=== PATIENT | female | born 1935 | race Caucasian/White ===

== ENCOUNTER 2016-09-14 15:28 | Emergency (ER) | payer OTHER ==
[~2016-09-14] VITALS: Ht 165.1 cm; Wt 66.1 kg
[~2016-09-14 15:28] MED LIST: ADULT LOW DOSE81 M1 PO; ADVAIR 250/501 DISK IH; ALLOPURINOL300 MG; ASPIR 8181 M1 PO; BENICAR20 MG; BENICAR20 MG PO; DIGOXIN250 MCG PO; DUONEB 2.5-0.5 M3 ML IH; FISH OIL 1,001000 M1 PO; FLONASE16 G1 BOTH NARES; FLOVENT 22120 INHALA; FUROSEMIDE20 MG PO; GLUCOPHAGE500 MG PO; IRON325 M1 PO; JANUMET 50/11 TABLET; JANUMET 50/51 TABLET PO; K-DUR10 MEQ PO; LOPRESSOR25 MG PO; METOPROLOL SUCC25 MG PO; NEXIUM40 MG PO; PRAVACHOL40 MG; PREDNISONE20 MG PO; PRESERVISION A1 EAC2 PO; PROTONIX40 MG PO; SYNTHROID112 MCG; SYNTHROID112 MCG PO; TOPROL XL25 MG PO; TRICOR48 MG; XARELTO20 MG PO; ZOLOFT100 M1 PO; ZOLOFT100 MG PO; ZYLOPRIM300 MG PO
[2016-09-14 16:01] LABS: ADD MIUA? YES; BILIRUBIN NEGATIVE; BLOOD LARGE; COLOR YELLOW ((YELLOW)); GLUCOSE (STRIP) NEGATIVE; KETONES NEGATIVE; LEUKOCYTES LARGE; NITRITE POSITIVE; PROTEIN (STRIP) 100; UROBILINOGEN 0.2 MG/DL (0.2-1.0)
[2016-09-14 16:07] LABS: HEMATOCRIT 34.4 % (36.0-46.0); MCH 21.7 PG (29.0-34.0); MCHC 28.2 G/DL (30.0-36.0); MCV 76.8 FL (83-99); MEAN PLAT.VOLUME 10.9 uM^3 (9.5-12.4); PLATELET COUNT 219 K/uL (156-360); RBC DIS.WIDTH-CV 18.1 % (11.8-14.6); RBC DIS.WIDTH-SD 49.6 % (39-53); RED BLOOD COUNT 4.48 M/uL (3.80-5.20)
[2016-09-14 16:11] LABS: BACTERIA 3+ /HPF; EPITHELIAL CELLS 1+ /HPF; MUCUS NONE SEEN /LPF; RED BLOOD CELLS TNTC /HPF (0-5); UCUL ADDED? YES; WHITE BLOOD CELLS TNTC /HPF (0-5)
[2016-09-14 16:21] LABS: CHLORIDE 106 mEq/L (99-109); POTASSIUM 4.4 mEq/L (3.7-5.4); SODIUM 140 mEq/L (136-147)
[2016-09-14 16:23] LABS: GLUCOSE 118 mg/dL (70-99); INTER. NORMALIZED RATIO 1.3; PROTHROMBIN TIME 13.7 (9.2-11.2); PTT 31.7 (25-32)
[2016-09-14 16:24] LABS: ANION GAP 10 MEQ/L (2-14)
[2016-09-14 16:26] LABS: GFR ESTIMATE (CALCULATED) > 59 mL/min/
[2016-09-14 16:27] LABS: UREA NITROGEN (BUN) 16 mg/dL (9-23)
[2016-09-14] MEDS ORDERED: ZOFRAN4 MG PO (16:38)
[2016-09-14] MEDS ORDERED: BACTRIM,SEPT1 TABLET PO (16:38)
[2016-09-14 17:47] VITALS: BP 153/86
== END 2016-09-14 18:20 | disposition home or self-care (01) ==
LOC: EME 15:28
PROVIDERS: Emergency Medicine
DX: N12 Tubulo-interstitial nephritis, not specified as acute or chronic (principal); I48.91 Unspecified atrial fibrillation; Z91.81 History of falling; J44.9 Chronic obstructive pulmonary disease, unspecified; J45.909 Unspecified asthma, uncomplicated; I10 Essential (primary) hypertension; E03.9 Hypothyroidism, unspecified; E11.9 Type 2 diabetes mellitus without complications; Z79.84 Long term (current) use of oral hypoglycemic drugs; Z79.82 Long term (current) use of aspirin; Z90.49 Acquired absence of other specified parts of digestive tract; Z90.10 Acquired absence of unspecified breast and nipple; Z87.891 Personal history of nicotine dependence
CPT/HCPCS: 80048; 81003; 85027; 85610; 85730; 87077; 87086 GA; 87186; 93005; 99281; 99284; J0696; J7030; J7050

== ENCOUNTER 2016-10-13 16:18 | Inpatient (IN) | payer OTHER ==
[~2016-10-13] VITALS: Ht 165.1 cm; Wt 63.5 kg
[~2016-10-13 16:18] MED LIST changes: +BACTRIM,SEPT1 TABLET PO; +ZOFRAN4 MG PO
[2016-10-13 18:06] LABS: INTER. NORMALIZED RATIO 1.8; PROTHROMBIN TIME 18.2 (9.2-11.2); PTT 32.7 (25-32)
[2016-10-13 18:09] LABS: CHLORIDE 104 mEq/L (99-109); POTASSIUM 4.4 mEq/L (3.7-5.4); SODIUM 137 mEq/L (136-147)
[2016-10-13 18:11] LABS: GLUCOSE 125 mg/dL (70-99)
[2016-10-13 18:12] LABS: ANION GAP 9 MEQ/L (2-14); TROP-I INTERPRETATION NEGATIVE; TROPONIN-I 0.02 ng/mL (0.0-0.30)
[2016-10-13 18:13] LABS: EOSINOPHIL (%) 0.5 % (0-5); HEMATOCRIT 28.1 % (36.0-46.0); IMMATURE GRANULOCYTE (%) 0.9 % (0.0-0.7); IMMATURE GRANULOCYTE COUNT 0.1 K/uL; INSTRUMENT ABS NEUTROPHIL CT 5.7 K/uL; LYMPHOCYTE COUNT 1.5 K/uL (1.0-2.8); MCH 20.9 PG (29.0-34.0); MCHC 27.8 G/DL (30.0-36.0); MCV 75.1 FL (83-99); MEAN PLAT.VOLUME 11.5 uM^3 (9.5-12.4); MONOCYTE (%) 8.3 % (3-12); MONOCYTE COUNT 0.7 K/uL (0-0.8); NEUTROPHIL COUNT 5.7 K/uL (1.8-6.4); PLATELET COUNT 156 K/uL (156-360); RBC DIS.WIDTH-CV 19.5 % (11.8-14.6); RED BLOOD COUNT 3.74 M/uL (3.80-5.20); WHITE BLOOD COUNT 8.1 K/uL (4.1-10.2)
[2016-10-13 18:13] LABS: TOTAL BILIRUBIN 0.9 mg/dL (0.0-1.0)
[2016-10-13 18:14] LABS: ALKALINE PHOSPHATASE 71 IU/L (3-129); GFR ESTIMATE (CALCULATED) > 59 mL/min/
[2016-10-13 18:16] LABS: UREA NITROGEN (BUN) 13 mg/dL (9-23)
[2016-10-13 18:18] LABS: LIPASE 34 U/L (1.0-51.0)
[2016-10-13 18:24] LABS: DIGOXIN < 0.3 ng/mL (0.8-2.0)
[2016-10-13] MEDS ORDERED: TOPROL XL50 MG PO (21:17)
[2016-10-13] MEDS ORDERED: JANUMET XR 1001 EACH PO (21:18)
[2016-10-13] MEDS ORDERED: AEROBIKA1 EACH MC (21:19)
[2016-10-13 21:35] LABS: ADD MIUA? NO; BILIRUBIN NEGATIVE; BLOOD NEGATIVE; COLOR STRAW ((YELLOW)); GLUCOSE (STRIP) NEGATIVE; KETONES NEGATIVE; LEUKOCYTES NEGATIVE; NITRITE NEGATIVE; PROTEIN (STRIP) NEGATIVE; SPECIFIC GRAVITY 1.005 (1.000-1.030); UCUL ADDED? NO; UROBILINOGEN 0.2 MG/DL (0.2-1.0)
[2016-10-13 23:29] VITALS: BP 110/86
[2016-10-13 23:42] VITALS: BP 107/82
[2016-10-14] VITALS (9 sets, daily range): BP systolic 104–150; BP diastolic 62–90
[2016-10-14 09:10] LABS: HEMATOCRIT 32.2 % (36.0-46.0); MCH 22.9 PG (29.0-34.0); MCHC 29.2 G/DL (30.0-36.0); MCV 78.3 FL (83-99); MEAN PLAT.VOLUME 11.8 uM^3 (9.5-12.4); PLATELET COUNT 150 K/uL (156-360); RBC DIS.WIDTH-CV 20.5 % (11.8-14.6); RBC DIS.WIDTH-SD 56.8 % (39-53); RED BLOOD COUNT 4.11 M/uL (3.80-5.20); WHITE BLOOD COUNT 7.8 K/uL (4.1-10.2)
[2016-10-14 09:36] LABS: ANION GAP 8 MEQ/L (2-14); CHLORIDE 101 MEQ/L (99-109); GFR ESTIMATE (CALCULATED) 57 mL/min/; GLUCOSE 129 mg/dL (70-99); POTASSIUM 3.8 MEQ/L (3.7-5.4); SAMPLE HEMOLYSIS CHECK 0; SAMPLE ICTERIC CHECK 0; SAMPLE LIPEMIA CHECK 0; SODIUM 139 MEQ/L (136-147); UREA NITROGEN (BUN) 16 mg/dL (9-23)
[2016-10-15 00:04] VITALS: BP 148/70
[2016-10-15 04:06] VITALS: BP 152/82
[2016-10-15 07:40] VITALS: BP 134/65
[2016-10-15 10:34] LABS: HEMATOCRIT 36.2 % (36.0-46.0); MCH 22.8 PG (29.0-34.0); MCV 78.7 FL (83-99); MEAN PLAT.VOLUME 12.6 uM^3 (9.5-12.4); PLATELET COUNT 181 K/uL (156-360); RBC DIS.WIDTH-CV 20.9 % (11.8-14.6); RBC DIS.WIDTH-SD 57.9 % (39-53); WHITE BLOOD COUNT 8.2 K/uL (4.1-10.2)
[2016-10-15 11:04] LABS: ALKALINE PHOSPHATASE 69 IU/L (3-129); ANION GAP 10 MEQ/L (2-14); CHLORIDE 100 MEQ/L (99-109); GFR ESTIMATE (CALCULATED) > 59 mL/min/; GLUCOSE 268 mg/dL (70-99); POTASSIUM 3.6 MEQ/L (3.7-5.4); SAMPLE HEMOLYSIS CHECK 0; SAMPLE ICTERIC CHECK 0; SAMPLE LIPEMIA CHECK 0; SODIUM 138 MEQ/L (136-147); UREA NITROGEN (BUN) 20 mg/dL (9-23)
[2016-10-15 11:46] VITALS: BP 155/60
[2016-10-15 12:07] LABS: POINT-OF-CARE METER ID UU13113698
[2016-10-15 15:22] VITALS: BP 111/57
[2016-10-15 15:46] LABS: POINT-OF-CARE METER ID UU13113698
[2016-10-15 20:31] LABS: POINT-OF-CARE METER ID UU13113698
[2016-10-15 21:25] VITALS: BP 116/62
[2016-10-16] VITALS (7 sets, daily range): BP systolic 110–156; BP diastolic 57–92
[2016-10-16 05:56] LABS: EOSINOPHIL (%) 0.2 % (0-5); HEMATOCRIT 36.2 % (36.0-46.0); IMMATURE GRANULOCYTE (%) 0.8 % (0.0-0.7); IMMATURE GRANULOCYTE COUNT 0.1 K/uL; INSTRUMENT ABS NEUTROPHIL CT 10.9 K/uL; LYMPHOCYTE COUNT 2.2 K/uL (1.0-2.8); MCH 22.4 PG (29.0-34.0); MCHC 28.7 G/DL (30.0-36.0); MEAN PLAT.VOLUME 11.6 uM^3 (9.5-12.4); MONOCYTE (%) 6.2 % (3-12); MONOCYTE COUNT 0.9 K/uL (0-0.8); NEUTROPHIL (%) 77.3 % (45-76); NEUTROPHIL COUNT 10.9 K/uL (1.8-6.4); PLATELET COUNT 168 K/uL (156-360); RBC DIS.WIDTH-CV 21.2 % (11.8-14.6); RBC DIS.WIDTH-SD 58.5 % (39-53); RED BLOOD COUNT 4.64 M/uL (3.80-5.20); WHITE BLOOD COUNT 14.1 K/uL (4.1-10.2)
[2016-10-16 06:42] LABS: ANION GAP 12 MEQ/L (2-14); CHLORIDE 98 MEQ/L (99-109); GFR ESTIMATE (CALCULATED) 57 mL/min/; GLUCOSE 166 mg/dL (70-99); POTASSIUM 3.4 MEQ/L (3.7-5.4); SAMPLE HEMOLYSIS CHECK 0; SAMPLE ICTERIC CHECK 0; SAMPLE LIPEMIA CHECK 0; SODIUM 138 MEQ/L (136-147); UREA NITROGEN (BUN) 30 mg/dL (9-23)
[2016-10-16 07:46] LABS: POINT-OF-CARE METER ID UU13113781
[2016-10-16 11:30] LABS: POINT-OF-CARE METER ID UU14174216
[2016-10-16 16:46] LABS: POINT-OF-CARE METER ID UU14174216
[2016-10-16 21:39] LABS: POINT-OF-CARE METER ID UU14174216
[2016-10-17 03:29] VITALS: BP 140/85
[2016-10-17 06:25] LABS: EOSINOPHIL (%) 0.2 % (0-5); HEMATOCRIT 36.5 % (36.0-46.0); IMMATURE GRANULOCYTE (%) 0.7 % (0.0-0.7); IMMATURE GRANULOCYTE COUNT 0.1 K/uL; INSTRUMENT ABS NEUTROPHIL CT 7.9 K/uL; LYMPHOCYTE COUNT 2.1 K/uL (1.0-2.8); MCH 22.7 PG (29.0-34.0); MCHC 29.3 G/DL (30.0-36.0); MCV 77.5 FL (83-99); MEAN PLAT.VOLUME 12.4 uM^3 (9.5-12.4); MONOCYTE (%) 7.7 % (3-12); MONOCYTE COUNT 0.8 K/uL (0-0.8); NEUTROPHIL (%) 72.3 % (45-76); NEUTROPHIL COUNT 7.9 K/uL (1.8-6.4); PLATELET COUNT 178 K/uL (156-360); RBC DIS.WIDTH-CV 21.2 % (11.8-14.6); RBC DIS.WIDTH-SD 58.6 % (39-53); RED BLOOD COUNT 4.71 M/uL (3.80-5.20)
[2016-10-17 07:00] LABS: ALKALINE PHOSPHATASE 57 IU/L (3-129); ANION GAP 12 MEQ/L (2-14); CHLORIDE 99 MEQ/L (99-109); GFR ESTIMATE (CALCULATED) > 59 mL/min/; POTASSIUM 3.6 MEQ/L (3.7-5.4); SAMPLE HEMOLYSIS CHECK 1; SAMPLE ICTERIC CHECK 0; SAMPLE LIPEMIA CHECK 0; SODIUM 140 MEQ/L (136-147); UREA NITROGEN (BUN) 30 mg/dL (9-23)
[2016-10-17 07:02] LABS: GLUCOSE 109 mg/dL (70-99); TOTAL BILIRUBIN 0.7 MG/DL (0.0-1.0)
[2016-10-17 07:15] VITALS: BP 148/69
[2016-10-17 07:57] LABS: POINT-OF-CARE METER ID UU13113698
[2016-10-17 11:30] VITALS: BP 135/77
[2016-10-17 11:40] LABS: POINT-OF-CARE METER ID UU13113698
[2016-10-17 16:07] VITALS: BP 177/76
[2016-10-17 16:30] LABS: POINT-OF-CARE METER ID UU13113698
[2016-10-17 19:12] VITALS: BP 121/58
[2016-10-17 20:41] LABS: POINT-OF-CARE METER ID UU14174216
[2016-10-18 00:01] VITALS: BP 120/58
[2016-10-18 03:44] VITALS: BP 132/58
[2016-10-18 07:11] VITALS: BP 143/69
[2016-10-18 11:39] VITALS: BP 111/62
[2016-10-18] MEDS ORDERED: ADVAIR HFA120 INHALA IH (11:41)
[2016-10-18] MEDS ORDERED: SPIRIVA RESPIMAT4 GM IH (11:41)
[2016-10-18] MEDS ORDERED: PANTOPRAZOLE SO40 MG PO (11:45)
[2016-10-18 16:16] VITALS: BP 121/60
== END 2016-10-18 17:19 | disposition home health service (06) | DRG 378 ==
LOC: EME 16:18 → 4EAST 21:43 → EDOF 21:43 → 4EAST 10-14 00:07
PROVIDERS: Emergency Medicine; Hospitalist; Physician Assistant
PROC: 30233N1 Transfusion of Nonautologous Red Blood Cells into Peripheral Vein, Percutaneous Approach (ICD-10-PCS; principal; 2016-10-13)
PROC: 0DB68ZX Excision of Stomach, Via Natural or Artificial Opening Endoscopic, Diagnostic (ICD-10-PCS; 2016-10-17)
DX: K92.2 Gastrointestinal hemorrhage, unspecified (principal); J96.11 Chronic respiratory failure with hypoxia; I50.32 Chronic diastolic (congestive) heart failure; J90 Pleural effusion, not elsewhere classified; I31.3 Pericardial effusion (noninflammatory); R18.8 Other ascites; K21.9 Gastro-esophageal reflux disease without esophagitis; J44.9 Chronic obstructive pulmonary disease, unspecified; E03.9 Hypothyroidism, unspecified; E87.6 Hypokalemia; I48.0 Paroxysmal atrial fibrillation; I48.2 Chronic atrial fibrillation; K59.00 Constipation, unspecified; K29.70 Gastritis, unspecified, without bleeding; K25.7 Chronic gastric ulcer without hemorrhage or perforation; H91.90 Unspecified hearing loss, unspecified ear; I11.0 Hypertensive heart disease with heart failure; I49.3 Ventricular premature depolarization; R29.6 Repeated falls; D53.9 Nutritional anemia, unspecified; I34.0 Nonrheumatic mitral (valve) insufficiency; E78.5 Hyperlipidemia, unspecified; E78.00 Pure hypercholesterolemia, unspecified; E11.9 Type 2 diabetes mellitus without complications; I27.2 Other secondary pulmonary hypertension; I36.1 Nonrheumatic tricuspid (valve) insufficiency; M19.90 Unspecified osteoarthritis, unspecified site; Z99.81 Dependence on supplemental oxygen; Z79.84 Long term (current) use of oral hypoglycemic drugs; Z85.3 Personal history of malignant neoplasm of breast; Z87.891 Personal history of nicotine dependence; Z79.01 Long term (current) use of anticoagulants; Z88.5 Allergy status to narcotic agent; Z88.0 Allergy status to penicillin; Z88.2 Allergy status to sulfonamides; Z82.3 Family history of stroke
CPT/HCPCS: 71010; 73502; 74176; 80048; 80053; 80162; 81003; 82948; 83690; 83880; 84484; 85025; 85027; 85610; 85730; 86900; 86901; 86920; 88305; 88342 TC; 93005; 94010; 94640; 94640 76; 94799; 99202; 99281; 99285; C9113; J1815; J1940; J2920; P9016

== ENCOUNTER 2017-05-22 18:53 | Inpatient (IN) | payer OTHER ==
[~2017-05-22] VITALS: Ht 167.6 cm; Wt 69.5 kg
[~2017-05-22 18:53] MED LIST changes: +ADVAIR HFA120 INHALA IH; +AEROBIKA1 EACH MC; +JANUMET XR 1001 EACH PO; +LOPRESSOR50 MG PO; +PANTOPRAZOLE SO40 MG PO; +SPIRIVA RESPIMAT4 GM IH
[2017-05-22 19:41] LABS: HEMATOCRIT 39.1 % (36.0-46.0); MCH 28.1 PG (29.0-34.0); MCHC 30.7 G/DL (30.0-36.0); MCV 91.6 FL (83-99); PLATELET COUNT 203 K/uL (156-360); RBC DIS.WIDTH-CV 17.1 % (11.8-14.6); RBC DIS.WIDTH-SD 55.2 % (39-53); RED BLOOD COUNT 4.27 M/uL (3.80-5.20); WHITE BLOOD COUNT 11.6 K/uL (4.1-10.2)
[2017-05-22 19:53] LABS: ALBUMIN 4.1 g/dL (3.2-4.8); CHLORIDE 106 mEq/L (99-109); POTASSIUM 4.9 mEq/L (3.7-5.4)
[2017-05-22 19:54] LABS: SODIUM 136 mEq/L (136-147)
[2017-05-22 19:56] LABS: GLUCOSE 161 mg/dL (70-99)
[2017-05-22 19:58] LABS: TOTAL BILIRUBIN 0.9 mg/dL (0.0-1.0)
[2017-05-22 19:59] LABS: ALKALINE PHOSPHATASE 65 IU/L (3-129); CREATININE 1.1 mg/dL (0.6-1.3); GFR ESTIMATE (CALCULATED) 51 mL/min/
[2017-05-22 20:01] LABS: AST (GOT) 24 IU/L (2-34); UREA NITROGEN (BUN) 22 mg/dL (9-23)
[2017-05-22 20:02] LABS: ALT (GPT) 19 IU/L (3-49)
[2017-05-22 20:03] LABS: LIPASE 36 U/L (1.0-51.0)
[2017-05-22] MEDS ORDERED: DIGOX250 MCG PO (22:03)
[2017-05-22] MEDS ORDERED: FUROSEMIDE20 MG PO (22:04)
[2017-05-22] MEDS ORDERED: K-DUR10 MEQ PO (22:04)
[2017-05-22] MEDS ORDERED: PROTONIX40 MG PO (22:05)
[2017-05-22 22:23] LABS: APPEARANCE CLEAR ((CLEAR)); BILIRUBIN NEGATIVE; BLOOD NEGATIVE; COLOR YELLOW ((YELLOW)); GLUCOSE (STRIP) NEGATIVE; KETONES NEGATIVE; LEUKOCYTES MODERATE; NITRITE NEGATIVE; PROTEIN (STRIP) 100; SPECIFIC GRAVITY 1.042 (1.000-1.030); UROBILINOGEN 0.2 MG/DL (0.2-1.0)
[2017-05-22 22:32] LABS: BACTERIA 2+ /HPF; EPITHELIAL CELLS RARE /HPF; HYALINE CASTS 0-5 /LPF; MUCUS TRACE /LPF; RED BLOOD CELLS 0-5 /HPF (0-5); UCUL ADDED? YES; WHITE BLOOD CELLS 20-30 /HPF (0-5)
[2017-05-23 03:02] VITALS: BP 110/70
[2017-05-23 04:19] VITALS: BP 168/73
[2017-05-23 05:26] LABS: TROP-I INTERPRETATION NEGATIVE; TROPONIN-I < 0.01 ng/mL (0.0-0.30)
[2017-05-23 06:10] LABS: HDL CHOLESTEROL 21 MG/DL (Desirable>=50); LDL CHOLESTEROL 61 mg/dL (Desirable<100); MAGNESIUM 1.7 mg/dl (1.3-2.7); NON-HDL CHOLESTEROL 90 mg/dL (Desirable<160); TOTAL CHOLESTEROL 111 mg/dL (Desirable<200); TRIGLYCERIDES 143 MG/DL (Normal: <150)
[2017-05-23 07:30] VITALS: BP 118/58
[2017-05-23 10:39] LABS: THYROTROPIN (TSH) 13.3 MIU/L (0.4-5.5)
[2017-05-23 11:26] VITALS: BP 135/71
[2017-05-23 12:42] LABS: TROP-I INTERPRETATION NEGATIVE; TROPONIN-I 0.02 ng/mL (0.0-0.30)
[2017-05-23 15:32] VITALS: BP 141/69
[2017-05-23 18:29] LABS: TROP-I INTERPRETATION NEGATIVE; TROPONIN-I 0.02 ng/mL (0.0-0.30)
[2017-05-23 20:16] VITALS: BP 124/66
[2017-05-24 01:00] VITALS: BP 143/65
[2017-05-24 01:11] VITALS: BP 136/60
[2017-05-24 04:48] VITALS: BP 122/61
[2017-05-24 05:36] LABS: HEMATOCRIT 34.7 % (36.0-46.0); HEMOGLOBIN 10.5 G/DL (11.9-15.5); MCH 28.1 PG (29.0-34.0); MCHC 30.3 G/DL (30.0-36.0); MCV 92.8 FL (83-99); PLATELET COUNT 165 K/uL (156-360); RBC DIS.WIDTH-CV 17.1 % (11.8-14.6); RBC DIS.WIDTH-SD 56.4 % (39-53); RED BLOOD COUNT 3.74 M/uL (3.80-5.20)
[2017-05-24 06:20] LABS: ALBUMIN 3.7 G/DL (3.2-4.8); ALKALINE PHOSPHATASE 55 IU/L (3-129); ALT (GPT) 13 IU/L (3-49); AST (GOT) 18 IU/L (2-34); CHLORIDE 103 MEQ/L (99-109); GFR ESTIMATE (CALCULATED) 57 mL/min/; MAGNESIUM 1.6 mg/dl (1.3-2.7); POTASSIUM 4.1 MEQ/L (3.7-5.4); SODIUM 139 MEQ/L (136-147); TOTAL BILIRUBIN 0.8 MG/DL (0.0-1.0); TOTAL PROTEIN 6.8 G/DL (6.4-8.3); UREA NITROGEN (BUN) 18 mg/dL (9-23)
[2017-05-24 06:37] LABS: GLUCOSE 118 mg/dL (70-99)
[2017-05-24 08:15] VITALS: BP 134/58
[2017-05-24 12:05] VITALS: BP 117/72
[2017-05-24 20:00] VITALS: BP 154/110
[2017-05-25 00:30] VITALS: BP 101/65
[2017-05-25 07:28] VITALS: BP 189/73
[2017-05-25 08:27] LABS: HEMATOCRIT 33.8 % (36.0-46.0); HEMOGLOBIN 10.5 G/DL (11.9-15.5); MCH 28.8 PG (29.0-34.0); MCHC 31.1 G/DL (30.0-36.0); MCV 92.9 FL (83-99); PLATELET COUNT 146 K/uL (156-360); RBC DIS.WIDTH-CV 17.2 % (11.8-14.6); RBC DIS.WIDTH-SD 56.6 % (39-53); RED BLOOD COUNT 3.64 M/uL (3.80-5.20); WHITE BLOOD COUNT 5.2 K/uL (4.1-10.2)
[2017-05-25 08:50] LABS: CHLORIDE 106 MEQ/L (99-109); CREATINE KINASE 71 IU/L (1-294); CREATININE 0.9 MG/DL (0.6-1.3); GFR ESTIMATE (CALCULATED) > 59 mL/min/; GLUCOSE 125 mg/dL (70-99); MAGNESIUM 1.7 mg/dl (1.3-2.7); POTASSIUM 4.1 MEQ/L (3.7-5.4); SODIUM 144 MEQ/L (136-147); UREA NITROGEN (BUN) 13 mg/dL (9-23)
[2017-05-25 12:03] VITALS: BP 136/78
[2017-05-25 16:00] VITALS: BP 126/60
[2017-05-25 19:00] VITALS: BP 138/87
[2017-05-25 23:45] VITALS: BP 131/75
[2017-05-26 04:43] LABS: HEMATOCRIT 35.6 % (36.0-46.0); HEMOGLOBIN 11.3 G/DL (11.9-15.5); MCHC 31.7 G/DL (30.0-36.0); MCV 91.5 FL (83-99); PLATELET COUNT 152 K/uL (156-360); RBC DIS.WIDTH-CV 16.7 % (11.8-14.6); RBC DIS.WIDTH-SD 55.3 % (39-53); RED BLOOD COUNT 3.89 M/uL (3.80-5.20); WHITE BLOOD COUNT 6.5 K/uL (4.1-10.2)
[2017-05-26 04:49] VITALS: BP 160/76
[2017-05-26 04:57] LABS: CHLORIDE 102 mEq/L (99-109); SODIUM 140 mEq/L (136-147)
[2017-05-26 04:58] LABS: MAGNESIUM 1.4 mg/dL (1.3-2.7)
[2017-05-26 04:59] LABS: GLUCOSE 124 mg/dL (70-99)
[2017-05-26 05:03] LABS: CREATININE 0.8 mg/dL (0.6-1.3); GFR ESTIMATE (CALCULATED) > 59 mL/min/
[2017-05-26 05:04] LABS: UREA NITROGEN (BUN) 14 mg/dL (9-23)
[2017-05-26 09:06] VITALS: BP 140/79
[2017-05-26 11:41] VITALS: BP 126/59
[2017-05-26] MEDS ORDERED: SERTRALINE HCL100 MG PO (15:07)
[2017-05-26] MEDS ORDERED: DIGOXIN250 MCG PO (15:07)
[2017-05-26] MEDS ORDERED: SPIRONOLACTONE25 MG PO (15:07)
[2017-05-26] MEDS ORDERED: PANTOPRAZOLE SO40 MG PO (15:07)
[2017-05-26] MEDS ORDERED: FUROSEMIDE20 MG PO (15:07)
[2017-05-26] MEDS ORDERED: LEVOTHYROXINE150 MCG PO (15:07)
[2017-05-26] MEDS ORDERED: LOPRESSOR50 MG PO (15:07)
[2017-05-26 19:36] VITALS: BP 165/96
[2017-05-26 23:02] VITALS: BP 147/69
[2017-05-27 03:56] VITALS: BP 141/75
[2017-05-27 09:32] VITALS: BP 158/82
[2017-05-27 12:00] VITALS: BP 121/60
[2017-05-27 15:34] VITALS: BP 135/63
== END 2017-05-27 18:52 | disposition home health service (06) | DRG 871 ==
LOC: EME → EDBD 18:53 → EME 18:53 → 4EAST 05-23 00:20 → EDOF 05-23 00:20 → ENRESERV 05-23 00:22 → EDOF 05-23 02:03 → ENRESERV 05-23 02:07 → 4EAST 05-23 02:48 → ENRESERV 05-24 14:06 → CANRESERV 05-24 14:06 → ENPENDDIS 05-27 → 4EAST 05-27 18:52
PROVIDERS: Emergency Medicine; Hospitalist; Internal Medicine
DX: A41.9 Sepsis, unspecified organism (principal); J81.0 Acute pulmonary edema; N30.00 Acute cystitis without hematuria; F05 Delirium due to known physiological condition; R18.8 Other ascites; J90 Pleural effusion, not elsewhere classified; J98.11 Atelectasis; R65.20 Severe sepsis without septic shock; Z66 Do not resuscitate; J43.9 Emphysema, unspecified; I48.2 Chronic atrial fibrillation; I25.10 Atherosclerotic heart disease of native coronary artery without angina pectoris; I11.0 Hypertensive heart disease with heart failure; I50.9 Heart failure, unspecified; E03.9 Hypothyroidism, unspecified; E11.9 Type 2 diabetes mellitus without complications; E78.5 Hyperlipidemia, unspecified; E86.0 Dehydration; E86.1 Hypovolemia; F17.210 Nicotine dependence, cigarettes, uncomplicated; H91.93 Unspecified hearing loss, bilateral; K21.9 Gastro-esophageal reflux disease without esophagitis; K74.60 Unspecified cirrhosis of liver; R16.0 Hepatomegaly, not elsewhere classified; I27.20 Pulmonary hypertension, unspecified; I34.0 Nonrheumatic mitral (valve) insufficiency; I37.1 Nonrheumatic pulmonary valve insufficiency; Z99.81 Dependence on supplemental oxygen; Z78.1 Physical restraint status; Z79.01 Long term (current) use of anticoagulants; Z79.52 Long term (current) use of systemic steroids; Z85.3 Personal history of malignant neoplasm of breast; Z88.0 Allergy status to penicillin; Z88.5 Allergy status to narcotic agent; Z79.84 Long term (current) use of oral hypoglycemic drugs
CPT/HCPCS: 70450; 71045; 71250; 74176; 74177; 80048; 80053; 80061; 81003; 82272; 82550; 82948; 83605; 83690; 83735; 84443; 84484; 84520; 85027; 87040; 87086 GA; 87493; 93005; 94799; 99281; 99285; J0692; J1160; J1200; J1644; J1815; J1956; J2060; J2270; J2405; J3010; J3370; J3486

== ENCOUNTER 2017-09-25 06:13 | Inpatient (IN) | payer OTHER ==
[~2017-09-25] VITALS: Ht 157.5 cm; Wt 73.3 kg
[~2017-09-25 06:13] MED LIST changes: +DIGOX250 MCG PO; +LEVOTHYROXINE150 MCG PO; +SERTRALINE HCL100 MG PO; +SPIRONOLACTONE25 MG PO
[2017-09-25 07:00] LABS: BASOPHIL (%) 0.6 % (0-1); BASOPHIL COUNT 0.1 K/uL (0-0.1); EOSINOPHIL (%) 1.5 % (0-5); EOSINOPHIL COUNT 0.2 K/uL (0-0.3); HEMATOCRIT 37.8 % (36.0-46.0); HEMOGLOBIN 11.6 G/DL (11.9-15.5); IMMATURE GRANULOCYTE (%) 0.6 % (0.0-0.7); LYMPHOCYTE (%) 13.7 % (15-42); LYMPHOCYTE COUNT 1.5 K/uL (1.0-2.8); MCH 27.3 PG (29.0-34.0); MCHC 30.7 G/DL (30.0-36.0); MCV 88.9 FL (83-99); MONOCYTE (%) 9.4 % (3-12); NEUTROPHIL (%) 74.2 % (45-76); PLATELET COUNT 173 K/uL (156-360); RBC DIS.WIDTH-CV 17.3 % (11.8-14.6); RBC DIS.WIDTH-SD 55.7 % (39-53); RED BLOOD COUNT 4.25 M/uL (3.80-5.20); WHITE BLOOD COUNT 10.7 K/uL (4.1-10.2)
[2017-09-25 07:27] LABS: TROP-I INTERPRETATION NEGATIVE; TROPONIN-I 0.02 ng/mL (0.0-0.30)
[2017-09-25 07:30] LABS: CHLORIDE 103 MEQ/L (99-109); CREATININE 2.9 MG/DL (0.6-1.3); GFR ESTIMATE (CALCULATED) 17 mL/min/; GLUCOSE 169 mg/dL (70-99); MAGNESIUM 1.8 mg/dl (1.3-2.7); POTASSIUM 5.7 MEQ/L (3.7-5.4); SODIUM 134 MEQ/L (136-147); UREA NITROGEN (BUN) 63 mg/dL (9-23)
[2017-09-25 07:59] LABS: THYROTROPIN (TSH) 11.1 MIU/L (0.4-5.5)
[2017-09-25 08:31] LABS: DIGOXIN < 0.3 ng/mL (0.8-2.0)
[2017-09-25 08:45] LABS: APPEARANCE CLOUDY ((CLEAR)); BILIRUBIN NEGATIVE; BLOOD NEGATIVE; COLOR YELLOW ((YELLOW)); GLUCOSE (STRIP) NEGATIVE; KETONES NEGATIVE; LEUKOCYTES MODERATE; NITRITE NEGATIVE; PROTEIN (STRIP) >=500; SPECIFIC GRAVITY 1.017 (1.000-1.030); UROBILINOGEN 0.2 MG/DL (0.2-1.0)
[2017-09-25 09:19] LABS: EPITHELIAL CELLS 1+ /HPF; HYALINE CASTS 0-5 /LPF; MUCUS NONE SEEN /LPF
[2017-09-25 09:20] LABS: BACTERIA 4+ /HPF; RED BLOOD CELLS RARE /HPF (0-5); WHITE BLOOD CELLS 20-30 /HPF (0-5)
[2017-09-25 12:00] VITALS: BP 94/55
[2017-09-25 15:09] LABS: COMMENTS - BLOOD GASES A+C+; DEVICE NC; O2 FLOW 6 L/MIN; PCO2 34 mm Hg (35-45); PO2 102 mm Hg (80-100); SITE LR; TOTAL RESP RATE 24 resp/min; pH 7.23 (7.35-7.45)
[2017-09-25 15:10] LABS: BASE EXCESS -12.3 mEq/L (-3 to +3); BICARBONATE 14.2 mEq/L (22-26)
[2017-09-25 15:40] LABS: CHLORIDE 105 MEQ/L (99-109); CREATININE 2.6 MG/DL (0.6-1.3); GFR ESTIMATE (CALCULATED) 19 mL/min/; GLUCOSE 126 mg/dL (70-99); POTASSIUM 5.1 MEQ/L (3.7-5.4); SODIUM 136 MEQ/L (136-147); UREA NITROGEN (BUN) 61 mg/dL (9-23)
[2017-09-25 16:00] VITALS: BP 111/65
[2017-09-25 16:25] LABS: BASOPHIL (%) 0.3 % (0-1); EOSINOPHIL (%) 0.6 % (0-5); EOSINOPHIL COUNT 0.1 K/uL (0-0.3); HEMATOCRIT 37.2 % (36.0-46.0); IMMATURE GRANULOCYTE (%) 0.7 % (0.0-0.7); LYMPHOCYTE (%) 11.1 % (15-42); LYMPHOCYTE COUNT 1.1 K/uL (1.0-2.8); MCH 27.2 PG (29.0-34.0); MCHC 29.6 G/DL (30.0-36.0); MCV 91.9 FL (83-99); MONOCYTE (%) 9.9 % (3-12); NEUTROPHIL (%) 77.4 % (45-76); NEUTROPHIL COUNT 7.9 K/uL (1.8-6.4); NRBC (%) 0.6 /100 WBC (0-0); PLATELET COUNT 163 K/uL (156-360); RBC DIS.WIDTH-CV 17.5 % (11.8-14.6); RBC DIS.WIDTH-SD 57.4 % (39-53); RED BLOOD COUNT 4.05 M/uL (3.80-5.20); WHITE BLOOD COUNT 10.3 K/uL (4.1-10.2)
[2017-09-25 16:32] LABS: INTER. NORMALIZED RATIO 2.3
[2017-09-25 16:35] LABS: PTT 31.8 SEC (25-37)
[2017-09-25 16:47] LABS: APPEARANCE SL.HAZY ((CLEAR)); BILIRUBIN NEGATIVE; BLOOD NEGATIVE; COLOR YELLOW ((YELLOW)); GLUCOSE (STRIP) NEGATIVE; KETONES NEGATIVE; LEUKOCYTES MODERATE; NITRITE NEGATIVE; PROTEIN (STRIP) >=500; SPECIFIC GRAVITY 1.015 (1.000-1.030); UROBILINOGEN 0.2 MG/DL (0.2-1.0)
[2017-09-25 16:48] LABS: HIGH-SENS C-REACTIVE PROTEIN 0.42 MG/DL (0.02-0.20)
[2017-09-25 17:05] LABS: BACTERIA RARE /HPF; EPITHELIAL CELLS RARE /HPF; HYALINE CASTS 40-50 /LPF; MUCUS TRACE /LPF; RED BLOOD CELLS 0-5 /HPF (0-5); WHITE BLOOD CELLS TNTC /HPF (0-5)
[2017-09-25 17:20] LABS: TROP-I INTERPRETATION NEGATIVE; TROPONIN-I 0.02 ng/mL (0.0-0.30)
[2017-09-25 18:54] LABS: UR CREATININE CONCENTRATION 131.4 MG/DL
[2017-09-25 22:15] VITALS: BP 141/73
[2017-09-26 06:52] VITALS: BP 118/80
[2017-09-26 06:57] LABS: HIGH-SENS C-REACTIVE PROTEIN 0.84 MG/DL (0.02-0.20)
[2017-09-26 06:58] LABS: BASOPHIL (%) 0.3 % (0-1); EOSINOPHIL (%) 0 % (0-5); HEMATOCRIT 36.6 % (36.0-46.0); HEMOGLOBIN 10.9 G/DL (11.9-15.5); IMMATURE GRANULOCYTE (%) 0.7 % (0.0-0.7); LYMPHOCYTE (%) 5.2 % (15-42); LYMPHOCYTE COUNT 0.4 K/uL (1.0-2.8); MCH 27.3 PG (29.0-34.0); MCHC 29.8 G/DL (30.0-36.0); MCV 91.5 FL (83-99); MONOCYTE COUNT 0.2 K/uL (0-0.8); NEUTROPHIL (%) 91.8 % (45-76); NEUTROPHIL COUNT 6.8 K/uL (1.8-6.4); NRBC (%) 0.3 /100 WBC (0-0); PLATELET COUNT 150 K/uL (156-360); RBC DIS.WIDTH-CV 17.6 % (11.8-14.6); RBC DIS.WIDTH-SD 58.1 % (39-53); WHITE BLOOD COUNT 7.4 K/uL (4.1-10.2)
[2017-09-26 07:15] LABS: ALBUMIN 4.1 G/DL (3.2-4.8); ALKALINE PHOSPHATASE 68 IU/L (3-129); ALT (GPT) 17 IU/L (3-49); AST (GOT) 24 IU/L (2-34); CHLORIDE 102 MEQ/L (99-109); CREATININE 2.7 MG/DL (0.6-1.3); GFR ESTIMATE (CALCULATED) 18 mL/min/; GLUCOSE 170 mg/dL (70-99); PHOSPHORUS 7.1 mg/dL (2.5-4.9); POTASSIUM 4.9 MEQ/L (3.7-5.4); SODIUM 137 MEQ/L (136-147); TOTAL BILIRUBIN 1.3 MG/DL (0.0-1.0); TOTAL PROTEIN 7.1 G/DL (6.4-8.3); UREA NITROGEN (BUN) 66 mg/dL (9-23)
[2017-09-26 07:18] LABS: MAGNESIUM 2.2 mg/dl (1.3-2.7)
[2017-09-26 15:30] VITALS: BP 128/89
[2017-09-26 22:39] VITALS: BP 127/84
[2017-09-27 05:52] LABS: BASOPHIL (%) 0.2 % (0-1); EOSINOPHIL (%) 0 % (0-5); HEMATOCRIT 35.7 % (36.0-46.0); HEMOGLOBIN 10.8 G/DL (11.9-15.5); IMMATURE GRANULOCYTE (%) 0.7 % (0.0-0.7); LYMPHOCYTE (%) 9.5 % (15-42); LYMPHOCYTE COUNT 0.6 K/uL (1.0-2.8); MCH 27.3 PG (29.0-34.0); MCHC 30.3 G/DL (30.0-36.0); MCV 90.2 FL (83-99); MONOCYTE (%) 3.2 % (3-12); MONOCYTE COUNT 0.2 K/uL (0-0.8); NEUTROPHIL (%) 86.4 % (45-76); NEUTROPHIL COUNT 5.1 K/uL (1.8-6.4); PLATELET COUNT 141 K/uL (156-360); RBC DIS.WIDTH-CV 17.8 % (11.8-14.6); RBC DIS.WIDTH-SD 57.5 % (39-53); RED BLOOD COUNT 3.96 M/uL (3.80-5.20); WHITE BLOOD COUNT 5.9 K/uL (4.1-10.2)
[2017-09-27 06:26] LABS: CHLORIDE 100 MEQ/L (99-109); CREATININE 2.1 MG/DL (0.6-1.3); GFR ESTIMATE (CALCULATED) 24 mL/min/; GLUCOSE 200 mg/dL (70-99); POTASSIUM 4.8 MEQ/L (3.7-5.4); SODIUM 135 MEQ/L (136-147); UREA NITROGEN (BUN) 65 mg/dL (9-23)
[2017-09-27 07:25] VITALS: BP 124/80
[2017-09-27 15:30] VITALS: BP 140/80
[2017-09-28 01:02] VITALS: BP 126/61
[2017-09-28 05:25] LABS: BASOPHIL (%) 0 % (0-1); EOSINOPHIL (%) 0 % (0-5); HEMATOCRIT 32.6 % (36.0-46.0); IMMATURE GRANULOCYTE (%) 0.7 % (0.0-0.7); LYMPHOCYTE (%) 7.7 % (15-42); LYMPHOCYTE COUNT 0.5 K/uL (1.0-2.8); MCH 26.9 PG (29.0-34.0); MCHC 30.7 G/DL (30.0-36.0); MCV 87.6 FL (83-99); MONOCYTE COUNT 0.3 K/uL (0-0.8); NEUTROPHIL (%) 86.6 % (45-76); NEUTROPHIL COUNT 5.9 K/uL (1.8-6.4); PLATELET COUNT 124 K/uL (156-360); RBC DIS.WIDTH-CV 17.4 % (11.8-14.6); RBC DIS.WIDTH-SD 55.3 % (39-53); RED BLOOD COUNT 3.72 M/uL (3.80-5.20); WHITE BLOOD COUNT 6.9 K/uL (4.1-10.2)
[2017-09-28 06:14] LABS: ALBUMIN 3.8 G/DL (3.2-4.8); ALKALINE PHOSPHATASE 58 IU/L (3-129); ALT (GPT) 16 IU/L (3-49); AST (GOT) 24 IU/L (2-34); CHLORIDE 99 MEQ/L (99-109); CREATININE 1.7 MG/DL (0.6-1.3); GFR ESTIMATE (CALCULATED) 31 mL/min/; GLUCOSE 177 mg/dL (70-99); SODIUM 137 MEQ/L (136-147); TOTAL PROTEIN 6.6 G/DL (6.4-8.3); UREA NITROGEN (BUN) 68 mg/dL (9-23)
[2017-09-28 06:15] LABS: POTASSIUM 3.6 MEQ/L (3.7-5.4)
[2017-09-28 07:20] VITALS: BP 162/87
[2017-09-28 15:35] VITALS: BP 168/84
[2017-09-29 06:04] LABS: BASOPHIL (%) 0 % (0-1); EOSINOPHIL (%) 0 % (0-5); HEMATOCRIT 34.6 % (36.0-46.0); HEMOGLOBIN 10.7 G/DL (11.9-15.5); IMMATURE GRANULOCYTE (%) 0.7 % (0.0-0.7); LYMPHOCYTE (%) 7.8 % (15-42); LYMPHOCYTE COUNT 0.5 K/uL (1.0-2.8); MCH 26.9 PG (29.0-34.0); MCHC 30.9 G/DL (30.0-36.0); MCV 86.9 FL (83-99); MONOCYTE (%) 4.1 % (3-12); MONOCYTE COUNT 0.2 K/uL (0-0.8); NEUTROPHIL (%) 87.4 % (45-76); NEUTROPHIL COUNT 5.1 K/uL (1.8-6.4); PLATELET COUNT 126 K/uL (156-360); RBC DIS.WIDTH-CV 17.3 % (11.8-14.6); RBC DIS.WIDTH-SD 54.5 % (39-53); RED BLOOD COUNT 3.98 M/uL (3.80-5.20); WHITE BLOOD COUNT 5.9 K/uL (4.1-10.2)
[2017-09-29 06:26] LABS: ALBUMIN 3.7 G/DL (3.2-4.8); ALKALINE PHOSPHATASE 52 IU/L (3-129); ALT (GPT) 19 IU/L (3-49); AST (GOT) 25 IU/L (2-34); CHLORIDE 96 MEQ/L (99-109); CREATININE 1.4 MG/DL (0.6-1.3); GFR ESTIMATE (CALCULATED) 38 mL/min/; GLUCOSE 190 mg/dL (70-99); POTASSIUM 3.1 MEQ/L (3.7-5.4); SODIUM 138 MEQ/L (136-147); TOTAL BILIRUBIN 1.1 MG/DL (0.0-1.0); TOTAL PROTEIN 6.6 G/DL (6.4-8.3); UREA NITROGEN (BUN) 63 mg/dL (9-23)
[2017-09-29 07:37] VITALS: BP 142/87
[2017-09-29] MEDS ORDERED: JANUMET XR 1001 EACH PO (10:01)
[2017-09-29] MEDS ORDERED: SERTRALINE HCL100 MG PO (10:02)
[2017-09-29] MEDS ORDERED: ALDACTONE25 MG PO (10:02)
[2017-09-29] MEDS ORDERED: ELIQUIS5 MG PO (10:02)
[2017-09-29] MEDS ORDERED: IRON325 M1 PO (10:02)
[2017-09-29] MEDS ORDERED: PROTONIX40 MG PO (10:03)
[2017-09-29] MEDS ORDERED: PRESERVISION T1 EACH PO (10:03)
[2017-09-29] MEDS ORDERED: FUROSEMIDE20 MG PO (10:03)
[2017-09-29] MEDS ORDERED: SYNTHROID112 MCG PO (10:03)
[2017-09-29] MEDS ORDERED: KLOR-CON M1010 MEQ PO (10:04)
[2017-09-29] MEDS ORDERED: RISPERDAL0.5 MG PO (10:04)
[2017-09-29] MEDS ORDERED: NITROSTAT0.6 MG SL (10:04)
[2017-09-29 10:19] LABS: HEMOGLOBIN A1c (GLYCOHEMOGLOB) 6.4 % (Below 5.7)
[2017-09-29 15:29] VITALS: BP 140/80
[2017-09-29 23:05] VITALS: BP 113/80
[2017-09-30 07:20] VITALS: BP 132/87
[2017-09-30 07:49] LABS: BASOPHIL (%) 0.2 % (0-1); EOSINOPHIL (%) 0 % (0-5); HEMATOCRIT 40.6 % (36.0-46.0); HEMOGLOBIN 12.6 G/DL (11.9-15.5); IMMATURE GRANULOCYTE (%) 1.3 % (0.0-0.7); LYMPHOCYTE (%) 13.3 % (15-42); LYMPHOCYTE COUNT 1.6 K/uL (1.0-2.8); MCH 27.3 PG (29.0-34.0); MCV 88.1 FL (83-99); MONOCYTE (%) 9.1 % (3-12); MONOCYTE COUNT 1.1 K/uL (0-0.8); NEUTROPHIL (%) 76.1 % (45-76); NEUTROPHIL COUNT 9.1 K/uL (1.8-6.4); PLATELET COUNT 136 K/uL (156-360); RBC DIS.WIDTH-CV 17.7 % (11.8-14.6); RBC DIS.WIDTH-SD 55.8 % (39-53); RED BLOOD COUNT 4.61 M/uL (3.80-5.20)
[2017-09-30 08:13] LABS: CHLORIDE 99 MEQ/L (99-109); POTASSIUM 3.5 MEQ/L (3.7-5.4); SODIUM 140 MEQ/L (136-147)
[2017-09-30 08:19] LABS: CREATININE 1.4 MG/DL (0.6-1.3); GFR ESTIMATE (CALCULATED) 38 mL/min/; GLUCOSE 196 mg/dL (70-99); UREA NITROGEN (BUN) 66 mg/dL (9-23)
[2017-09-30 16:27] VITALS: BP 144/87
[2017-10-01 00:27] VITALS: BP 140/81
[2017-10-01 06:04] LABS: BASOPHIL (%) 0.1 % (0-1); EOSINOPHIL (%) 0.3 % (0-5); HEMOGLOBIN 10.7 G/DL (11.9-15.5); IMMATURE GRANULOCYTE (%) 0.6 % (0.0-0.7); MCH 27.2 PG (29.0-34.0); MCHC 30.6 G/DL (30.0-36.0); MCV 88.8 FL (83-99); MONOCYTE (%) 7.9 % (3-12); MONOCYTE COUNT 0.6 K/uL (0-0.8); NEUTROPHIL (%) 76.1 % (45-76); NEUTROPHIL COUNT 5.3 K/uL (1.8-6.4); PLATELET COUNT 110 K/uL (156-360); RBC DIS.WIDTH-CV 17.2 % (11.8-14.6); RBC DIS.WIDTH-SD 55.7 % (39-53); RED BLOOD COUNT 3.94 M/uL (3.80-5.20)
[2017-10-01 06:33] LABS: CHLORIDE 99 MEQ/L (99-109); CREATININE 1.4 MG/DL (0.6-1.3); GFR ESTIMATE (CALCULATED) 38 mL/min/; GLUCOSE 167 mg/dL (70-99); POTASSIUM 3.5 MEQ/L (3.7-5.4); SODIUM 144 MEQ/L (136-147); UREA NITROGEN (BUN) 58 mg/dL (9-23)
[2017-10-01 07:10] VITALS: BP 150/79
[2017-10-01 15:55] VITALS: BP 146/74
[2017-10-02] VITALS: BP 142/71
[2017-10-02 07:28] VITALS: BP 124/74
[2017-10-02 13:07] LABS: CHLORIDE 95 MEQ/L (99-109); CREATININE 1.1 MG/DL (0.6-1.3); GFR ESTIMATE (CALCULATED) 51 mL/min/; GLUCOSE 192 mg/dL (70-99); POTASSIUM 3.3 MEQ/L (3.7-5.4); SODIUM 141 MEQ/L (136-147); UREA NITROGEN (BUN) 43 mg/dL (9-23)
[2017-10-02 16:03] VITALS: BP 130/59
[2017-10-02 23:05] VITALS: BP 116/62
[2017-10-03 05:41] LABS: BASOPHIL (%) 0 % (0-1); EOSINOPHIL (%) 1.2 % (0-5); EOSINOPHIL COUNT 0.1 K/uL (0-0.3); HEMATOCRIT 38.2 % (36.0-46.0); HEMOGLOBIN 11.3 G/DL (11.9-15.5); IMMATURE GRANULOCYTE (%) 0.6 % (0.0-0.7); LYMPHOCYTE (%) 11.9 % (15-42); MCH 26.4 PG (29.0-34.0); MCHC 29.6 G/DL (30.0-36.0); MCV 89.3 FL (83-99); MONOCYTE (%) 6.9 % (3-12); MONOCYTE COUNT 0.6 K/uL (0-0.8); NEUTROPHIL (%) 79.4 % (45-76); NEUTROPHIL COUNT 6.4 K/uL (1.8-6.4); PLATELET COUNT 108 K/uL (156-360); RBC DIS.WIDTH-CV 17.2 % (11.8-14.6); RBC DIS.WIDTH-SD 55.6 % (39-53); RED BLOOD COUNT 4.28 M/uL (3.80-5.20); WHITE BLOOD COUNT 8.1 K/uL (4.1-10.2)
[2017-10-03 06:06] LABS: CHLORIDE 98 MEQ/L (99-109); CREATININE 1.2 MG/DL (0.6-1.3); GFR ESTIMATE (CALCULATED) 46 mL/min/; GLUCOSE 177 mg/dL (70-99); POTASSIUM 3.7 MEQ/L (3.7-5.4); SODIUM 140 MEQ/L (136-147); UREA NITROGEN (BUN) 38 mg/dL (9-23)
[2017-10-03 07:05] VITALS: BP 137/65
[2017-10-03 11:45] VITALS: BP 114/56
[2017-10-03 15:35] VITALS: BP 116/61
[2017-10-03 23:07] VITALS: BP 134/64
[2017-10-04 06:55] VITALS: BP 170/86
[2017-10-04 15:20] VITALS: BP 126/68
[2017-10-04 17:04] VITALS: BP 113/77
[2017-10-04 18:06] VITALS: BP 101/70
[2017-10-04 20:06] VITALS: BP 160/71
[2017-10-05 00:09] VITALS: BP 169/63
[2017-10-05 03:41] VITALS: BP 127/60
[2017-10-05 06:34] LABS: CHLORIDE 96 MEQ/L (99-109); CREATININE 1.3 MG/DL (0.6-1.3); GFR ESTIMATE (CALCULATED) 42 mL/min/; SODIUM 141 MEQ/L (136-147); UREA NITROGEN (BUN) 32 mg/dL (9-23)
[2017-10-05 06:38] LABS: GLUCOSE 112 mg/dL (70-99)
[2017-10-05 06:55] VITALS: BP 126/61
[2017-10-05 10:58] VITALS: BP 145/72
[2017-10-05 15:05] VITALS: BP 126/75
[2017-10-05 20:07] VITALS: BP 146/65
[2017-10-06 04:11] VITALS: BP 138/61
[2017-10-06 06:33] LABS: HEMOGLOBIN 10.8 G/DL (11.9-15.5); MCH 26.1 PG (29.0-34.0); PLATELET COUNT 108 K/uL (156-360); RBC DIS.WIDTH-CV 16.7 % (11.8-14.6); RBC DIS.WIDTH-SD 53.1 % (39-53); RED BLOOD COUNT 4.14 M/uL (3.80-5.20); WHITE BLOOD COUNT 6.6 K/uL (4.1-10.2)
[2017-10-06 06:58] LABS: CHLORIDE 95 MEQ/L (99-109); CREATININE 1.1 MG/DL (0.6-1.3); GFR ESTIMATE (CALCULATED) 51 mL/min/; GLUCOSE 109 mg/dL (70-99); POTASSIUM 3.2 MEQ/L (3.7-5.4); SODIUM 144 MEQ/L (136-147); UREA NITROGEN (BUN) 22 mg/dL (9-23)
[2017-10-06 07:10] VITALS: BP 155/71
[2017-10-06 09:04] LABS: MAGNESIUM 1.4 mg/dl (1.3-2.7)
[2017-10-06 11:05] VITALS: BP 138/65
[2017-10-06 12:11] LABS: INTER. NORMALIZED RATIO 1.4
[2017-10-06 14:55] VITALS: BP 125/88
[2017-10-06 22:44] VITALS: BP 150/59
[2017-10-07 07:00] VITALS: BP 136/73
[2017-10-07 10:57] VITALS: BP 133/72
[2017-10-07 13:38] LABS: MAGNESIUM 1.4 mg/dl (1.3-2.7); POTASSIUM 3.5 MEQ/L (3.7-5.4)
[2017-10-07 16:25] VITALS: BP 131/80
[2017-10-07 20:16] VITALS: BP 119/61
[2017-10-08] VITALS (8 sets, daily range): BP systolic 109–143; BP diastolic 56–71
[2017-10-09 06:57] VITALS: BP 143/63
[2017-10-09 07:17] LABS: CHLORIDE 94 MEQ/L (99-109); CREATININE 0.9 MG/DL (0.6-1.3); GFR ESTIMATE (CALCULATED) > 59 mL/min/; GLUCOSE 121 mg/dL (70-99); POTASSIUM 3.5 MEQ/L (3.7-5.4); SODIUM 141 MEQ/L (136-147); UREA NITROGEN (BUN) 18 mg/dL (9-23)
[2017-10-09 15:30] VITALS: BP 130/61
[2017-10-09 23:18] VITALS: BP 150/86
[2017-10-10 06:48] VITALS: BP 126/64
[2017-10-10 15:18] VITALS: BP 141/65
[2017-10-10 22:55] VITALS: BP 131/60
[2017-10-11 06:52] VITALS: BP 144/66
[2017-10-11 15:30] VITALS: BP 150/67
[2017-10-11 19:21] VITALS: BP 169/72
[2017-10-11 23:17] VITALS: BP 146/74
[2017-10-12 03:46] VITALS: BP 115/60
[2017-10-12 07:09] LABS: HEMATOCRIT 48.4 % (36.0-46.0); MCH 26.5 PG (29.0-34.0); MCHC 30.6 G/DL (30.0-36.0); MCV 86.7 FL (83-99); PLATELET COUNT 124 K/uL (156-360); RBC DIS.WIDTH-CV 16.7 % (11.8-14.6); RBC DIS.WIDTH-SD 53.1 % (39-53); WHITE BLOOD COUNT 7.6 K/uL (4.1-10.2)
[2017-10-12 07:10] LABS: HEMOGLOBIN 14.8 G/DL (11.9-15.5); RED BLOOD COUNT 5.58 M/uL (3.80-5.20)
[2017-10-12 08:02] LABS: DIGOXIN 1.6 ng/mL (0.8-2.0)
[2017-10-12 09:25] LABS: CHLORIDE 90 MEQ/L (99-109); CREATININE 0.9 MG/DL (0.6-1.3); GFR ESTIMATE (CALCULATED) > 59 mL/min/; GLUCOSE 152 mg/dL (70-99); POTASSIUM 3.6 MEQ/L (3.7-5.4); SODIUM 139 MEQ/L (136-147); UREA NITROGEN (BUN) 24 mg/dL (9-23)
[2017-10-12 11:15] VITALS: BP 125/62
[2017-10-12 15:25] VITALS: BP 156/72
[2017-10-12 23:14] VITALS: BP 119/71
[2017-10-13 06:40] VITALS: BP 122/52
[2017-10-13 15:18] VITALS: BP 126/58
[2017-10-13 23:24] VITALS: BP 132/58
[2017-10-14 06:37] LABS: CHLORIDE 90 MEQ/L (99-109); CREATININE 0.9 MG/DL (0.6-1.3); GFR ESTIMATE (CALCULATED) > 59 mL/min/; GLUCOSE 146 mg/dL (70-99); POTASSIUM 3.3 MEQ/L (3.7-5.4); SODIUM 140 MEQ/L (136-147); UREA NITROGEN (BUN) 31 mg/dL (9-23)
[2017-10-14 07:11] VITALS: BP 116/57
[2017-10-14 15:40] VITALS: BP 135/67
[2017-10-15 00:36] VITALS: BP 140/64
[2017-10-15 06:39] LABS: CHLORIDE 81 MEQ/L (99-109); CREATININE 0.8 MG/DL (0.6-1.3); GFR ESTIMATE (CALCULATED) > 59 mL/min/; GLUCOSE 150 mg/dL (70-99); SODIUM 146 MEQ/L (136-147); UREA NITROGEN (BUN) 31 mg/dL (9-23)
[2017-10-15 06:41] LABS: POTASSIUM 4.4 MEQ/L (3.7-5.4)
[2017-10-15 07:33] VITALS: BP 120/59
[2017-10-15 11:19] VITALS: BP 146/65
[2017-10-15 15:38] VITALS: BP 128/67
[2017-10-16 00:16] VITALS: BP 146/64
[2017-10-16 07:30] VITALS: BP 128/72
[2017-10-16 15:00] VITALS: BP 122/73
[2017-10-16 23:36] VITALS: BP 128/66
[2017-10-17 07:22] VITALS: BP 118/64
[2017-10-17 16:21] VITALS: BP 136/72
[2017-10-17 22:55] VITALS: BP 113/62
[2017-10-18 07:03] VITALS: BP 117/66
[2017-10-18 15:41] VITALS: BP 125/59
[2017-10-18 21:39] VITALS: BP 142/80
[2017-10-18 22:56] VITALS: BP 140/56
[2017-10-19 07:15] VITALS: BP 132/60
[2017-10-19 16:48] VITALS: BP 142/68
[2017-10-19 21:00] VITALS: BP 135/76
[2017-10-20 00:56] VITALS: BP 116/50
[2017-10-20 07:40] VITALS: BP 128/63
[2017-10-20 15:24] VITALS: BP 141/64
[2017-10-21 00:34] VITALS: BP 118/75
[2017-10-21 07:24] VITALS: BP 122/70
[2017-10-21 16:47] VITALS: BP 133/66
[2017-10-21 23:16] VITALS: BP 129/72
[2017-10-22 07:05] VITALS: BP 132/61
[2017-10-22 15:15] VITALS: BP 132/83
[2017-10-22 23:28] VITALS: BP 121/56
[2017-10-23 06:49] VITALS: BP 117/69
[2017-10-23 15:10] VITALS: BP 119/56
[2017-10-23 23:56] VITALS: BP 96/52
[2017-10-24 07:05] VITALS: BP 106/62
[2017-10-24 15:10] VITALS: BP 110/66
[2017-10-24 23:25] VITALS: BP 134/65
[2017-10-24 23:28] VITALS: BP 125/72
[2017-10-25 07:05] VITALS: BP 136/71
[2017-10-25 15:10] VITALS: BP 112/56
[2017-10-25 19:07] VITALS: BP 131/61
[2017-10-25 22:42] VITALS: BP 106/52
[2017-10-26 07:18] VITALS: BP 140/59
[2017-10-26 16:13] VITALS: BP 123/56
[2017-10-26 23:06] VITALS: BP 129/60
[2017-10-27 07:10] VITALS: BP 121/82
[2017-10-27 16:48] VITALS: BP 121/53
[2017-10-27 22:56] VITALS: BP 120/61
[2017-10-28 06:46] LABS: BASOPHIL (%) 0.5 % (0-1); EOSINOPHIL COUNT 0.1 K/uL (0-0.3); HEMOGLOBIN 16.7 G/DL (11.9-15.5); IMMATURE GRANULOCYTE (%) 0.6 % (0.0-0.7); LYMPHOCYTE (%) 18.9 % (15-42); LYMPHOCYTE COUNT 1.5 K/uL (1.0-2.8); MCHC 32.7 G/DL (30.0-36.0); MONOCYTE (%) 12.2 % (3-12); NEUTROPHIL (%) 66.8 % (45-76); NEUTROPHIL COUNT 5.4 K/uL (1.8-6.4); PLATELET COUNT 152 K/uL (156-360); RBC DIS.WIDTH-CV 17.4 % (11.8-14.6); RBC DIS.WIDTH-SD 49.4 % (39-53); RED BLOOD COUNT 6.19 M/uL (3.80-5.20); WHITE BLOOD COUNT 8.1 K/uL (4.1-10.2)
[2017-10-28 06:47] LABS: MCV 82.4 FL (83-99)
[2017-10-28 06:52] LABS: CHLORIDE 84 MEQ/L (99-109); CREATININE 1.2 MG/DL (0.6-1.3); GFR ESTIMATE (CALCULATED) 46 mL/min/; GLUCOSE 172 mg/dL (70-99); POTASSIUM 3.1 MEQ/L (3.7-5.4); SODIUM 140 MEQ/L (136-147); UREA NITROGEN (BUN) 41 mg/dL (9-23)
[2017-10-28 07:06] LABS: CARBON DIOXIDE (BICARBONATE) > 40.0 MEQ/L (20-31)
[2017-10-28 07:15] VITALS: BP 136/76
[2017-10-28 16:30] VITALS: BP 132/69
[2017-10-28 23:55] VITALS: BP 125/72
[2017-10-29 06:31] LABS: BASOPHIL (%) 0.5 % (0-1); EOSINOPHIL (%) 0.6 % (0-5); EOSINOPHIL COUNT 0.1 K/uL (0-0.3); HEMATOCRIT 49.2 % (36.0-46.0); HEMOGLOBIN 15.6 G/DL (11.9-15.5); IMMATURE GRANULOCYTE (%) 0.7 % (0.0-0.7); LYMPHOCYTE (%) 19.1 % (15-42); LYMPHOCYTE COUNT 1.7 K/uL (1.0-2.8); MCH 26.7 PG (29.0-34.0); MCHC 31.7 G/DL (30.0-36.0); MCV 84.1 FL (83-99); MONOCYTE (%) 12.2 % (3-12); MONOCYTE COUNT 1.1 K/uL (0-0.8); NEUTROPHIL (%) 66.9 % (45-76); NEUTROPHIL COUNT 5.9 K/uL (1.8-6.4); PLATELET COUNT 142 K/uL (156-360); RBC DIS.WIDTH-CV 17.8 % (11.8-14.6); RBC DIS.WIDTH-SD 51.7 % (39-53); RED BLOOD COUNT 5.85 M/uL (3.80-5.20); WHITE BLOOD COUNT 8.8 K/uL (4.1-10.2)
[2017-10-29 07:03] LABS: CHLORIDE 86 MEQ/L (99-109); CREATININE 1.4 MG/DL (0.6-1.3); GFR ESTIMATE (CALCULATED) 38 mL/min/; GLUCOSE 166 mg/dL (70-99); POTASSIUM 3.1 MEQ/L (3.7-5.4); SODIUM 140 MEQ/L (136-147); UREA NITROGEN (BUN) 45 mg/dL (9-23)
[2017-10-29 07:57] VITALS: BP 164/79
[2017-10-29 15:00] VITALS: BP 112/58
[2017-10-29 19:57] VITALS: BP 104/53
[2017-10-30 06:02] LABS: BASOPHIL (%) 0.5 % (0-1); EOSINOPHIL COUNT 0.1 K/uL (0-0.3); IMMATURE GRANULOCYTE (%) 0.5 % (0.0-0.7); LYMPHOCYTE (%) 22.6 % (15-42); LYMPHOCYTE COUNT 1.7 K/uL (1.0-2.8); MCH 27.4 PG (29.0-34.0); MCHC 31.9 G/DL (30.0-36.0); MCV 85.8 FL (83-99); MONOCYTE (%) 12.8 % (3-12); NEUTROPHIL (%) 62.6 % (45-76); NEUTROPHIL COUNT 4.8 K/uL (1.8-6.4); PLATELET COUNT 116 K/uL (156-360); RBC DIS.WIDTH-CV 17.4 % (11.8-14.6); RBC DIS.WIDTH-SD 53.3 % (39-53); RED BLOOD COUNT 5.48 M/uL (3.80-5.20); WHITE BLOOD COUNT 7.7 K/uL (4.1-10.2)
[2017-10-30 06:29] LABS: CHLORIDE 92 MEQ/L (99-109); CREATININE 1.2 MG/DL (0.6-1.3); GFR ESTIMATE (CALCULATED) 46 mL/min/; GLUCOSE 176 mg/dL (70-99); SODIUM 146 MEQ/L (136-147); UREA NITROGEN (BUN) 46 mg/dL (9-23)
[2017-10-30 06:34] LABS: POTASSIUM 3.8 MEQ/L (3.7-5.4)
[2017-10-30 06:49] LABS: CARBON DIOXIDE (BICARBONATE) > 40.0 MEQ/L (20-31)
[2017-10-30 07:00] VITALS: BP 120/62
[2017-10-30 15:15] VITALS: BP 119/59
[2017-10-30 22:55] VITALS: BP 110/55
[2017-10-31 12:55] VITALS: BP 133/60
[2017-10-31 15:35] VITALS: BP 108/56
[2017-10-31 21:55] VITALS: BP 128/61
[2017-10-31 22:50] VITALS: BP 119/57
[2017-11-01 15:50] VITALS: BP 124/59
[2017-11-01 22:52] VITALS: BP 124/57
[2017-11-02 07:53] VITALS: BP 132/63
[2017-11-02 12:43] VITALS: BP 114/56
[2017-11-02 15:12] VITALS: BP 101/52
[2017-11-03 00:47] VITALS: BP 127/57
[2017-11-03 07:15] VITALS: BP 105/73
[2017-11-03 15:45] VITALS: BP 131/61
[2017-11-03 23:33] VITALS: BP 156/68
[2017-11-04 09:00] VITALS: BP 107/53
[2017-11-04 13:42] VITALS: BP 135/59
[2017-11-04 15:49] VITALS: BP 105/46
[2017-11-05 00:06] VITALS: BP 117/57
[2017-11-05 07:39] VITALS: BP 90/42
[2017-11-05 09:03] VITALS: BP 122/60
[2017-11-05 15:49] VITALS: BP 109/53
[2017-11-05 23:11] VITALS: BP 99/51
[2017-11-06 07:44] VITALS: BP 108/54
[2017-11-06 23:31] VITALS: BP 98/60
[2017-11-07 06:44] VITALS: BP 112/55
[2017-11-07 10:35] LABS: MCH 27.3 PG (29.0-34.0); MCHC 33.3 G/DL (30.0-36.0); MCV 81.9 FL (83-99); PLATELET COUNT 115 K/uL (156-360); RBC DIS.WIDTH-SD 50.4 % (39-53); RED BLOOD COUNT 5.13 M/uL (3.80-5.20); WHITE BLOOD COUNT 7.1 K/uL (4.1-10.2)
[2017-11-07 11:50] LABS: CHLORIDE 87 MEQ/L (99-109); CREATININE 0.7 MG/DL (0.6-1.3); GFR ESTIMATE (CALCULATED) > 59 mL/min/; GLUCOSE 149 mg/dL (70-99); MAGNESIUM 1.6 mg/dl (1.3-2.7); POTASSIUM 2.8 MEQ/L (3.7-5.4); SODIUM 137 MEQ/L (136-147); UREA NITROGEN (BUN) 18 mg/dL (9-23)
[2017-11-07 13:28] VITALS: BP 129/62
[2017-11-07 15:00] VITALS: BP 124/61
[2017-11-07 22:34] VITALS: BP 149/65
[2017-11-08 06:55] VITALS: BP 115/56
[2017-11-08 15:00] VITALS: BP 118/55
[2017-11-08 23:08] VITALS: BP 131/66; BP 140/63
[2017-11-09 11:24] LABS: CHLORIDE 90 MEQ/L (99-109); CREATININE 0.7 MG/DL (0.6-1.3); GFR ESTIMATE (CALCULATED) > 59 mL/min/; GLUCOSE 137 mg/dL (70-99); SODIUM 137 MEQ/L (136-147); UREA NITROGEN (BUN) 14 mg/dL (9-23)
[2017-11-09 11:25] LABS: POTASSIUM 4.3 MEQ/L (3.7-5.4)
[2017-11-10 00:05] VITALS: BP 105/61
[2017-11-10 08:03] VITALS: BP 118/58
[2017-11-10 23:47] VITALS: BP 107/53
[2017-11-11 06:35] LABS: HEMATOCRIT 40.7 % (36.0-46.0); HEMOGLOBIN 13.6 G/DL (11.9-15.5); MCH 27.5 PG (29.0-34.0); MCHC 33.4 G/DL (30.0-36.0); MCV 82.4 FL (83-99); RBC DIS.WIDTH-CV 17.4 % (11.8-14.6); RBC DIS.WIDTH-SD 51.9 % (39-53); RED BLOOD COUNT 4.94 M/uL (3.80-5.20); WHITE BLOOD COUNT 6.2 K/uL (4.1-10.2)
[2017-11-11 06:42] LABS: PLATELET COUNT 158 K/uL (156-360)
[2017-11-11 07:00] VITALS: BP 115/73
[2017-11-11 07:05] LABS: CHLORIDE 93 MEQ/L (99-109); CREATININE 0.7 MG/DL (0.6-1.3); GFR ESTIMATE (CALCULATED) > 59 mL/min/; GLUCOSE 139 mg/dL (70-99); SODIUM 140 MEQ/L (136-147); UREA NITROGEN (BUN) 19 mg/dL (9-23)
[2017-11-11 07:08] LABS: POTASSIUM 3.4 MEQ/L (3.7-5.4)
[2017-11-11 15:35] VITALS: BP 106/62
[2017-11-11 23:51] VITALS: BP 130/58
[2017-11-12 07:38] LABS: CHLORIDE 93 MEQ/L (99-109); CREATININE 0.7 MG/DL (0.6-1.3); GFR ESTIMATE (CALCULATED) > 59 mL/min/; GLUCOSE 131 mg/dL (70-99); POTASSIUM 3.8 MEQ/L (3.7-5.4); SODIUM 138 MEQ/L (136-147); UREA NITROGEN (BUN) 17 mg/dL (9-23)
[2017-11-12 08:06] VITALS: BP 143/62
[2017-11-12 15:56] VITALS: BP 115/59
[2017-11-12 23:13] VITALS: BP 118/77
[2017-11-13 10:30] VITALS: BP 124/68
[2017-11-13 15:30] VITALS: BP 139/65
[2017-11-13 23:15] VITALS: BP 102/50
[2017-11-14 09:25] VITALS: BP 118/52
[2017-11-14 15:50] VITALS: BP 115/69
[2017-11-14 22:37] VITALS: BP 131/62
[2017-11-15 06:55] VITALS: BP 123/57
[2017-11-15 15:50] VITALS: BP 112/53
[2017-11-15 22:34] VITALS: BP 135/74
[2017-11-16 05:53] LABS: HEMATOCRIT 41.3 % (36.0-46.0); HEMOGLOBIN 13.4 G/DL (11.9-15.5); MCH 27.5 PG (29.0-34.0); MCHC 32.4 G/DL (30.0-36.0); MCV 84.6 FL (83-99); PLATELET COUNT 199 K/uL (156-360); RBC DIS.WIDTH-CV 17.9 % (11.8-14.6); RED BLOOD COUNT 4.88 M/uL (3.80-5.20); WHITE BLOOD COUNT 7.9 K/uL (4.1-10.2)
[2017-11-16 06:23] LABS: CHLORIDE 94 MEQ/L (99-109); CREATININE 0.8 MG/DL (0.6-1.3); GFR ESTIMATE (CALCULATED) > 59 mL/min/; GLUCOSE 136 mg/dL (70-99); POTASSIUM 4.2 MEQ/L (3.7-5.4); SODIUM 136 MEQ/L (136-147); UREA NITROGEN (BUN) 12 mg/dL (9-23)
[2017-11-16 07:23] VITALS: BP 98/53
[2017-11-16 16:55] VITALS: BP 102/60
[2017-11-16 23:03] VITALS: BP 136/56
[2017-11-17 07:15] VITALS: BP 130/60
[2017-11-17 15:15] VITALS: BP 146/67
[2017-11-17 22:54] VITALS: BP 122/60
[2017-11-18 07:10] VITALS: BP 105/79
[2017-11-18 15:00] VITALS: BP 118/56
[2017-11-18 21:12] VITALS: BP 120/60
[2017-11-18 23:52] VITALS: BP 145/67
[2017-11-19 07:00] VITALS: BP 120/67
[2017-11-19 15:51] VITALS: BP 130/61
[2017-11-19 23:33] VITALS: BP 147/78
[2017-11-20 02:29] LABS: C DIFF TOXIN NEGATIVE (NEGATIVE)
[2017-11-20 07:01] LABS: CHLORIDE 101 MEQ/L (99-109); CREATININE 0.8 MG/DL (0.6-1.3); GFR ESTIMATE (CALCULATED) > 59 mL/min/; GLUCOSE 109 mg/dL (70-99); POTASSIUM 4.7 MEQ/L (3.7-5.4); SODIUM 139 MEQ/L (136-147); UREA NITROGEN (BUN) 12 mg/dL (9-23)
[2017-11-20 07:21] VITALS: BP 117/54
[2017-11-20 15:05] VITALS: BP 130/60
[2017-11-20 22:54] VITALS: BP 129/59
[2017-11-21 06:58] VITALS: BP 103/54
[2017-11-21 15:25] VITALS: BP 128/60
[2017-11-21 22:52] VITALS: BP 133/63
[2017-11-22 06:55] VITALS: BP 152/65
[2017-11-22 15:05] VITALS: BP 109/50
[2017-11-22 23:01] VITALS: BP 115/65
[2017-11-23] MEDS ORDERED: DONEPEZIL HCL5 MG PO (10:58)
[2017-11-23] MEDS ORDERED: DIGOXIN250 MCG PO (10:59)
[2017-11-23] MEDS ORDERED: TYLENOL REGULA325 MG PO (11:02)
[2017-11-23] MEDS ORDERED: RISPERIDONE0.5 MG PO (11:02)
[2017-11-23] MEDS ORDERED: DOCUSATE SODIU100 MG PO (11:03)
[2017-11-23] MEDS ORDERED: SOD CITRATE-CI473 ML PO (11:03)
[2017-11-23 11:35] VITALS: BP 107/54
[2017-11-23 12:00] VITALS: BP 107/59
[2017-11-23 16:05] VITALS: BP 134/60
[2017-11-23 22:16] VITALS: BP 180/76
[2017-11-24 07:10] VITALS: BP 121/57
[2017-11-24 23:41] VITALS: BP 125/60
[2017-11-25 08:04] VITALS: BP 145/65
[2017-11-25 15:38] VITALS: BP 136/62
[2017-11-26 00:01] VITALS: BP 139/63
[2017-11-26 00:04] VITALS: BP 139/63
[2017-11-26 07:20] VITALS: BP 134/62
== END 2017-11-26 15:17 | DRG 682 ==
LOC: EME → EDBD 06:13 → EME 06:13 → 5EAST 08:54 → 4EAST 08:54 → EDOF 08:54 → ENRESERV 08:56 → 4EAST 10:50 → ENRESERV 14:59 → 4WEST 15:08 → ENRESERV 20:14 → 5EAST 22:19 → ENPENDDIS 11-26 12:00 → 5EAST 11-26 15:17
PROVIDERS: Emergency Medicine; Hospitalist; Internal Medicine; Internal Medicine Nephrology; Physician Assistant
DX: N17.9 Acute kidney failure, unspecified (principal); T50.1X5A Adverse effect of loop [high-ceiling] diuretics, initial encounter; T50.0X5A Adverse effect of mineralocorticoids and their antagonists, initial encounter; E87.1 Hypo-osmolality and hyponatremia; E86.0 Dehydration; I48.2 Chronic atrial fibrillation; A41.9 Sepsis, unspecified organism; N39.0 Urinary tract infection, site not specified; B96.89 Other specified bacterial agents as the cause of diseases classified elsewhere; R57.0 Cardiogenic shock; J96.01 Acute respiratory failure with hypoxia; I11.0 Hypertensive heart disease with heart failure; I50.21 Acute systolic (congestive) heart failure; E87.2 Acidosis; E87.5 Hyperkalemia; E87.6 Hypokalemia; E87.3 Alkalosis; Z66 Do not resuscitate; F01.51 Vascular dementia, unspecified severity, with behavioral disturbance; F05 Delirium due to known physiological condition; E78.5 Hyperlipidemia, unspecified; K74.60 Unspecified cirrhosis of liver; R18.8 Other ascites; K76.6 Portal hypertension; I27.20 Pulmonary hypertension, unspecified; I25.10 Atherosclerotic heart disease of native coronary artery without angina pectoris; E03.9 Hypothyroidism, unspecified; D64.9 Anemia, unspecified; M25.511 Pain in right shoulder; M54.2 Cervicalgia; M54.9 Dorsalgia, unspecified; R32 Unspecified urinary incontinence; K21.9 Gastro-esophageal reflux disease without esophagitis; E11.21 Type 2 diabetes mellitus with diabetic nephropathy; I08.1 Rheumatic disorders of both mitral and tricuspid valves; F17.200 Nicotine dependence, unspecified, uncomplicated; H91.10 Presbycusis, unspecified ear; J44.9 Chronic obstructive pulmonary disease, unspecified; Z88.0 Allergy status to penicillin; Z98.1 Arthrodesis status; Z99.81 Dependence on supplemental oxygen; Z91.14 Patient's other noncompliance with medication regimen; Z75.1 Person awaiting admission to adequate facility elsewhere
CPT/HCPCS: 36600; 71045; 71250; 73030; 74176; 76705; 80048; 80048 91; 80053; 80162; 81003; 82140; 82436; 82570; 82803; 82945; 82948; 83036; 83605; 83615 91; 83735; 83880; 83986 90; 84100; 84132; 84133; 84145 90; 84157; 84300; 84439; 84443; 84484; 85025; 85025 91; 85027; 85610; 85730; 86141; 87070; 87077; 87086; 87186; 87205; 87493; 87641; 89051; 93005; 93306; 94640; 94640 76; 94760; 94799; 97530 GO; 97530 GP; 99202; 99281; 99285; J0692; J0696; J1160; J1630; J1644; J1720; J1815; J2060; J2270; J3010; J3475; J7030; J7040; P9047